=== PATIENT | female | born 1995 | race Caucasian/White ===

== ENCOUNTER → 2017-07-10 | Outpatient (CLI) | payer OTHER ==
[2017-07-10 18:13] LABS: BASO % 0.3 % (0.0-1.0); EOS # 0.1 10^3/uL (0.0-0.50); EOS % 0.7 % (0.0-3.0); IMMATURE GRANULOCYTE % 0.3 % (0-0); LYMPH # 1.8 10^3/uL (1.5-6.5); LYMPH % 15.4 % (24.0-44.0); MEAN CORPUSCULAR HEMOGLOBIN 30.8 pg (27.0-33.0); MEAN CORPUSCULAR HGB CONC 33.9 g/dl (32.0-36.5); MEAN CORPUSCULAR VOLUME 91.1 fl (80.0-96.0); MONO # 0.9 10^3/uL (0.0-0.8); MONO % 7.8 % (0.0-5.0); NEUTROPHILS # 8.9 10^3/uL (1.8-7.7); NEUTROPHILS % 75.5 % (36.0-66.0); PLATELET COUNT, AUTOMATED 304 10^3/uL (150-450); RED CELL DISTRIBUTION WIDTH 11.9 % (11.5-14.5); WHITE BLOOD COUNT 11.8 10^3/uL (4.0-10.0)
[2017-07-12 12:09] LABS: HBsAg Prenatal NEGATIVE (NEGATIVE)
== END ==
LOC: M SMT 13:56
PROVIDERS: ATTEND Advanced Practice Midwife
DX: O30.041 Twin pregnancy, dichorionic/diamniotic, first trimester (principal); Z3A.09 9 weeks gestation of pregnancy

== ENCOUNTER → 2017-09-11 | Outpatient (CLI) | payer OTHER | LOC: M RAD 13:06 | DX: O30.042 Twin pregnancy, dichorionic/diamniotic, second trimester (principal); Z3A.18 18 weeks gestation of pregnancy | CPT/HCPCS: 76811 ==

== ENCOUNTER → 2017-09-27 | Outpatient (CLI) | payer OTHER | LOC: M RAD 07:20 | DX: O43.022 Fetus-to-fetus placental transfusion syndrome, second trimester (principal) ==

== ENCOUNTER → 2017-10-04 | Outpatient (CLI) | payer OTHER | LOC: M RAD 13:50 | DX: O43.022 Fetus-to-fetus placental transfusion syndrome, second trimester (principal); Z3A.21 21 weeks gestation of pregnancy; O30.032 Twin pregnancy, monochorionic/diamniotic, second trimester | CPT/HCPCS: 76816 ==

== ENCOUNTER → 2017-10-11 | Outpatient (CLI) | payer OTHER | LOC: M RAD 14:05 | DX: O43.022 Fetus-to-fetus placental transfusion syndrome, second trimester (principal); Z3A.22 22 weeks gestation of pregnancy | CPT/HCPCS: 76816 ==

== ENCOUNTER 2017-10-18 16:13 | Outpatient (CLI) | payer OTHER | END 2017-10-18 19:00 | disposition home or self-care (01) | LOC: M LDO 16:13 | DX: O30.032 Twin pregnancy, monochorionic/diamniotic, second trimester (principal); O43.022 Fetus-to-fetus placental transfusion syndrome, second trimester; Z3A.23 23 weeks gestation of pregnancy | CPT/HCPCS: 76815 ==

== ENCOUNTER → 2017-10-18 | Outpatient (CLI) | payer OTHER | LOC: M RAD 14:00 | DX: O43.022 Fetus-to-fetus placental transfusion syndrome, second trimester (principal); O30.032 Twin pregnancy, monochorionic/diamniotic, second trimester; Z3A.23 23 weeks gestation of pregnancy; O40.2XX1 Polyhydramnios, second trimester, fetus 1; O41.02X2 Oligohydramnios, second trimester, fetus 2 | CPT/HCPCS: 76816 ==

== ENCOUNTER → 2017-11-03 | Outpatient (CLI) | payer OTHER | LOC: M RAD 12:15 | DX: O30.032 Twin pregnancy, monochorionic/diamniotic, second trimester (principal) ==

== ENCOUNTER → 2017-11-10 | Outpatient (CLI) | payer OTHER ==
[2017-11-10 17:39] LABS: HEMATOCRIT 31.1 % (36.0-47.0); HEMOGLOBIN 10.1 g/dl (12.0-15.5); MEAN CORPUSCULAR HEMOGLOBIN 29.5 pg (27.0-33.0); MEAN CORPUSCULAR HGB CONC 32.5 g/dl (32.0-36.5); MEAN CORPUSCULAR VOLUME 90.9 fl (80.0-96.0); PLATELET COUNT, AUTOMATED 245 10^3/uL (150-450); RED BLOOD COUNT 3.42 10^6/uL (4.00-5.40); RED CELL DISTRIBUTION WIDTH 12.8 % (11.5-14.5); WHITE BLOOD COUNT 10.2 10^3/uL (4.0-10.0)
[2017-11-10 18:59] LABS: GLUCOSE CHALLENGE TEST 1 HOUR 88 MG/DL (LESS THAN 140)
== END ==
LOC: M SMT 14:28
DX: O30.042 Twin pregnancy, dichorionic/diamniotic, second trimester (principal)

== ENCOUNTER → 2017-11-13 | Outpatient (CLI) | payer OTHER | LOC: M RAD 17:01 | DX: O30.032 Twin pregnancy, monochorionic/diamniotic, second trimester (principal); Z3A.27 27 weeks gestation of pregnancy ==

== ENCOUNTER → 2017-11-21 | Outpatient (CLI) | payer OTHER | LOC: M RAD 07:49 | DX: O30.032 Twin pregnancy, monochorionic/diamniotic, second trimester (principal); Z3A.28 28 weeks gestation of pregnancy | CPT/HCPCS: 76816 ==

== ENCOUNTER → 2017-12-13 | Outpatient (CLI) | payer OTHER | LOC: M RAD 11:03 | DX: O30.033 Twin pregnancy, monochorionic/diamniotic, third trimester (principal); Z3A.31 31 weeks gestation of pregnancy; O32.2XX2 Maternal care for transverse and oblique lie, fetus 2 | CPT/HCPCS: 76819 ==

== ENCOUNTER → 2017-12-26 | Outpatient (CLI) | payer OTHER | LOC: M RAD 17:47 | DX: O30.032 Twin pregnancy, monochorionic/diamniotic, second trimester (principal); Z3A.33 33 weeks gestation of pregnancy; O32.2XX2 Maternal care for transverse and oblique lie, fetus 2 | CPT/HCPCS: 76819 ==

== ENCOUNTER 2017-12-28 10:07 | Outpatient (CLI) | payer OTHER ==
[2017-12-28] MEDS: BETAMETHASONE SOLUSPAN 6MG/ML INJ 5ML (J0702) IM (11:05)
== END 2017-12-28 12:00 | disposition home or self-care (01) ==
LOC: M LDO 10:07
DX: O30.033 Twin pregnancy, monochorionic/diamniotic, third trimester (principal); Z3A.33 33 weeks gestation of pregnancy
CPT/HCPCS: J0702

== ENCOUNTER 2017-12-29 10:04 | Outpatient (CLI) | payer OTHER ==
[2017-12-29] MEDS: BETAMETHASONE SOLUSPAN 6MG/ML INJ 5ML (J0702) IM (11:22)
== END 2017-12-29 12:50 | disposition home or self-care (01) ==
LOC: M LDO 10:04
DX: O30.033 Twin pregnancy, monochorionic/diamniotic, third trimester (principal); Z3A.33 33 weeks gestation of pregnancy; O26.893 Other specified pregnancy related conditions, third trimester
CPT/HCPCS: J0702

== ENCOUNTER → 2018-01-03 | Outpatient (CLI) | payer OTHER | LOC: M RAD 09:42 | DX: O30.043 Twin pregnancy, dichorionic/diamniotic, third trimester (principal); Z3A.34 34 weeks gestation of pregnancy | CPT/HCPCS: 76819 ==

== ENCOUNTER → 2018-01-03 | Outpatient (REF) | payer OTHER | LOC: M LAB REF 17:22 | DX: O30.033 Twin pregnancy, monochorionic/diamniotic, third trimester (principal) | CPT/HCPCS: 87081 ==

== ENCOUNTER 2018-01-04 06:54 | Inpatient (IN) | payer OTHER ==
[2018-01-04 08:00] LABS: HEMATOCRIT 41.8 % (36.0-47.0); HEMOGLOBIN 13.8 g/dl (12.0-15.5); MEAN CORPUSCULAR HEMOGLOBIN 30.3 pg (27.0-33.0); MEAN CORPUSCULAR VOLUME 91.9 fl (80.0-96.0); PLATELET COUNT, AUTOMATED 160 10^3/uL (150-450); RED BLOOD COUNT 4.55 10^6/uL (4.00-5.40); RED CELL DISTRIBUTION WIDTH 17.8 % (11.5-14.5); WHITE BLOOD COUNT 8.8 10^3/uL (4.0-10.0)
[2018-01-04] MEDS: LACTATED RINGER'S 1000 ML IV (08:26)
[2018-01-04] MEDS: LR 1,000 ML IV ×4 (09:22→23:52)
[2018-01-04] MEDS ORDERED: MORPHINE PRES-FREE INJ 10 MG/10 ML VIAL (J2274) As Ordered (09:36)
[2018-01-04] MEDS ORDERED: OXYTOCIN INJ 10 UNITS/ML VIAL (J2590) As Ordered ×2 (09:37)
[2018-01-04] MEDS: BICITRA 30ML SOLN UDC PO (09:51)
[2018-01-04] MEDS ORDERED: ONDANSETRON 4MG/2ML VIAL (J2405) As Ordered (10:02)
[2018-01-04] MEDS ORDERED: ePHEDrine SULFATE 25 MG/5 ML(5MG/ML) SYRINGE As Ordered (10:05)
[2018-01-04] MEDS ORDERED: METOCLOPRAMIDE INJ 10MG/2ML VIAL (J2765) IV (10:05)
[2018-01-04] MEDS ORDERED: PHENYLephrine HCL 500 MCG/5 ML (100MCG/ML) SYRINGE (J2370) As Ordered (10:05)
[2018-01-04] MEDS ORDERED: NALOXONE INJ 0.4 MG/1 ML VIAL (J2310) IV ×2 (10:05)
[2018-01-04] MEDS ORDERED: NALBUPHINE HCL 10 MG/ML AMP (J2300) IV (10:05)
[2018-01-04] MEDS ORDERED: ONDANSETRON 4MG/2ML VIAL (J2405) IV ×3 (10:05→11:45)
[2018-01-04] MEDS ORDERED: ATROPINE SULF 0.4 MG/ML 1ML VIAL (J0461) As Ordered (10:15)
[2018-01-04] MEDS ORDERED: KETOROLAC 60 MG/2 ML VIAL (J1885) As Ordered (10:34)
[2018-01-04] MEDS ORDERED: miSOPROStol 200 MCG TAB (S0191) As Ordered (10:46)
[2018-01-04] MEDS: miSOPROStol 200 MCG TAB (S0191) PR (11:30)
[2018-01-04] MEDS ORDERED: RHOGAM 300 MCG (1500 IU) INJ (J2790) IM (11:30)
[2018-01-04] MEDS ORDERED: PERCOCET 5MG/325MG TAB PO (11:45)
[2018-01-04] MEDS ORDERED: fentaNYL 100 MCG/2 ML INJECTION (J3010) IV (11:45)
[2018-01-04] MEDS ORDERED: MEPERIDINE INJ 25 MG/ML VIAL (J2175) As Ordered (11:50)
[2018-01-04] MEDS: MEPERIDINE INJ 25 MG/ML VIAL (J2175) IV (12:15)
[2018-01-04] MEDS: KETOROLAC 30 MG/ML VIAL (J1885) IV ×2 (17:16→22:25)
[2018-01-05] MEDS: KETOROLAC 30 MG/ML VIAL (J1885) IV (05:13)
[2018-01-05 07:35] LABS: HEMATOCRIT 42.4 % (36.0-47.0); HEMOGLOBIN 14.2 g/dl (12.0-15.5); MEAN CORPUSCULAR HEMOGLOBIN 30.5 pg (27.0-33.0); MEAN CORPUSCULAR HGB CONC 33.5 g/dl (32.0-36.5); PLATELET COUNT, AUTOMATED 179 10^3/uL (150-450); RED BLOOD COUNT 4.66 10^6/uL (4.00-5.40); RED CELL DISTRIBUTION WIDTH 17.4 % (11.5-14.5); WHITE BLOOD COUNT 14.9 10^3/uL (4.0-10.0)
[2018-01-05] MEDS: PRENATAL VITAMINS CHEWABLE TABLET PO (07:56)
[2018-01-05] MEDS: PERCOCET 5MG/325MG TAB PO ×5 (07:57→20:31)
[2018-01-05] MEDS: LR 1,000 ML IV ×2 (11:30→19:30)
[2018-01-05] MEDS: IBUPROFEN 800 MG TAB PO ×2 (12:06→21:26)
[2018-01-05] MEDS: DOCUSATE SODIUM 100 MG CAP PO (20:01)
[2018-01-06] MEDS: PERCOCET 5MG/325MG TAB PO ×6 (00:08→21:27)
[2018-01-06] MEDS: IBUPROFEN 800 MG TAB PO ×3 (04:10→21:27)
[2018-01-06] MEDS: PRENATAL VITAMINS CHEWABLE TABLET PO (08:27)
[2018-01-06] MEDS: ADACEL/BOOSTRIX VACCINE (DIPHTH/PERTUSS/ACELL/TETANUS)0.5ML SYR (90715) IM (12:28)
[2018-01-06] MEDS: DOCUSATE SODIUM 100 MG CAP PO (21:27)
[2018-01-07] MEDS: PERCOCET 5MG/325MG TAB PO ×4 (01:39→13:57)
[2018-01-07] MEDS: IBUPROFEN 800 MG TAB PO ×2 (05:55→13:47)
[2018-01-07] MEDS: PRENATAL VITAMINS CHEWABLE TABLET PO (09:39)
[2018-01-07] MEDS: MEASLES,MUMPS,RUBELLA VACCINE INJ (MMR-II) (90707) SC (13:48)
== END 2018-01-07 15:15 | disposition home or self-care (01) | DRG 765 ==
LOC: M LDI 06:54 → M OBS 13:53
PROVIDERS: Specialist
PROC: 10D00Z1 Extraction of Products of Conception, Low, Open Approach (ICD-10-PCS; principal; 2018-01-04 08:33)
DX: O30.033 Twin pregnancy, monochorionic/diamniotic, third trimester (principal); O60.14X0 Preterm labor third trimester with preterm delivery third trimester, not applicable or unspecified; Z37.2 Twins, both liveborn; Z3A.34 34 weeks gestation of pregnancy; O43.023 Fetus-to-fetus placental transfusion syndrome, third trimester

== ENCOUNTER → 2019-02-08 | Outpatient (CLI) | payer OTHER ==
[~2019-02-08] MED LIST: IBUP-1114 PO; IRON65TA PO; MAGN500C PO; OXYC1TAB23 PO; PRENTAB9 PO; VITA-110 PO
[2019-02-08 13:21] LABS: BASO % 0.4 % (0.0-1.0); EOS # 0.4 10^3/uL (0.0-0.50); HEMATOCRIT 40.7 % (36.0-47.0); HEMOGLOBIN 13.3 g/dl (12.0-15.5); LYMPH # 1.5 10^3/uL (1.5-6.5); LYMPH % 21.1 % (24.0-44.0); MEAN CORPUSCULAR HEMOGLOBIN 29.8 pg (27.0-33.0); MEAN CORPUSCULAR HGB CONC 32.7 g/dl (32.0-36.5); MEAN CORPUSCULAR VOLUME 91.3 fl (80.0-96.0); MONO # 0.6 10^3/uL (0.0-0.8); MONO % 7.6 % (0.0-5.0); NEUTROPHILS # 4.7 10^3/uL (1.8-7.7); NEUTROPHILS % 65.6 % (36.0-66.0); PLATELET COUNT, AUTOMATED 298 10^3/uL (150-450); RED BLOOD COUNT 4.46 10^6/uL (4.00-5.40); WHITE BLOOD COUNT 7.2 10^3/uL (4.0-10.0)
[2019-02-08 14:33] LABS: RUBELLA IgG QUALITATIVE IMMUNE (IMMUNE)
[2019-02-08 15:09] LABS: GC DNA AMPLIFICATION NEGATIVE (NEGATIVE)
[2019-02-11 12:33] LABS: CHLAMYDIA DNA AMPLIFICATION NEGATIVE (NEGATIVE)
[2019-02-11 12:34] LABS: HEPATITIS C VIRUS ABY INDEX 0.1 INDEX (<0.8); HIV 1&2 SCREEN CENTAUR NEGATIVE (NEGATIVE)
== END ==
LOC: M SMT 09:15
PROVIDERS: ATTEND Specialist
DX: Z34.81 Encounter for supervision of other normal pregnancy, first trimester (principal); Z3A.08 8 weeks gestation of pregnancy

== ENCOUNTER → 2019-04-04 | Outpatient (CLI) | payer OTHER | LOC: M WUC 15:49 | PROVIDERS: ATTEND Specialist | DX: Z34.82 Encounter for supervision of other normal pregnancy, second trimester (principal); Z3A.00 Weeks of gestation of pregnancy not specified ==

== ENCOUNTER → 2019-04-24 | Outpatient (CLI) | payer OTHER ==
--- NOTE | 2019-04-24 17:15 | REP ---
Obstetric ultrasound for anatomy: There is a single intrauterine gestation in a vertex presentation. There is movement and cardiac activity. The heart rate is 147 beats per minute. The placenta is anterior. There is no previa or abruptio. The placenta is grade zero. The amniotic fluid volume subjectively is normal. The cervix measures 5.2 cm length. Gestational age by today's ultrasound is 20 weeks 4 days/SRAVANTHI 09/07/2019. Gestational age by LMP is 19-week 6 days/SRAVANTHI 09/12/2019. weight is 387 grams/0 pounds, 13 ounces. This is the 86 percentile for 19 weeks 6 days. The following anatomic structures are identified and are unremarkable: Cranium, choroid plexus, cavum septum pellucidum, cerebellum, facial profile, upper lip, lungs, four-chamber heart, cardiac right and left ventricular outflow tracts, diaphragm, stomach, cord insertion, three-vessel cord, kidneys, bladder, spine and upper lower extremities. No anomalies are identified. Electronically Signed by Rudolph Walsh MD 04/24/2019 05:05 P
== END ==
LOC: M RAD 15:12
PROVIDERS: ATTEND Specialist
DX: Z34.82 Encounter for supervision of other normal pregnancy, second trimester (principal); Z36.89 Encounter for other specified antenatal screening; Z3A.20 20 weeks gestation of pregnancy

== ENCOUNTER → 2019-06-19 | Outpatient (CLI) | payer OTHER ==
[2019-06-19 16:18] LABS: BASO % 0.1 % (0.0-1.0); EOS # 0.1 10^3/uL (0.0-0.5); EOS % 0.9 % (0.0-3.0); HEMATOCRIT 34.9 % (36.0-47.0); HEMOGLOBIN 11.2 g/dl (12.0-15.5); LYMPH # 1.8 10^3/uL (1.5-5.0); LYMPH % 15.9 % (24.0-44.0); MEAN CORPUSCULAR HEMOGLOBIN 30.3 pg (27.0-33.0); MEAN CORPUSCULAR HGB CONC 32.1 g/dl (32.0-36.5); MEAN CORPUSCULAR VOLUME 94.3 fl (80.0-96.0); MONO % 9.1 % (0.0-5.0); NEUTROPHILS # 8.2 10^3/uL (1.5-8.5); NEUTROPHILS % 73.5 % (36.0-66.0); PLATELET COUNT, AUTOMATED 242 10^3/uL (150-450); WHITE BLOOD COUNT 11.2 10^3/uL (4.0-10.0)
== END ==
LOC: M WUC 14:29
PROVIDERS: ATTEND Specialist
DX: Z34.82 Encounter for supervision of other normal pregnancy, second trimester (principal); Z36.89 Encounter for other specified antenatal screening

== ENCOUNTER → 2019-08-16 | Outpatient (REF) | payer OTHER | LOC: M SFHCWAGY 17:11 | PROVIDERS: ATTEND Specialist | DX: Z36.89 Encounter for other specified antenatal screening (principal) ==

== ENCOUNTER 2019-09-17 06:26 | Inpatient (IN) | payer OTHER ==
[2019-09-17] VITALS (30 sets, daily range): BP systolic 101–133; BP diastolic 53–84
[~2019-09-17] VITALS: Ht 157.5 cm; Wt 85.5 kg
[2019-09-17] MEDS ORDERED: PENICILLIN G POTASSIUM IV 5 MU in D5W MINI-BAG PLUS 100 ML IV STA (07:13)
--- NOTE | 2019-09-17 07:38 | HPE ---
DATE OF ADMISSION: 09/17/2019 24-year-old G2, P1 female at 40 and 5/7 week gestation by last menstrual period (LMP) consistent with an 8-week ultrasound with estimated date of confinement (EDC) 09/12/2019 presents with regular contractions every 2-3 minutes for last 2 hours. Contractions increased in intensity. She had a small amount of vaginal bleeding. She had a history of a prior section and desires trial of labor after (TOLAC) option. COURSE: Patient initiated care at 8 weeks gestation. She had normal course. She was counseled extensively regarding TOLAC and inherent risks. OBSTETRICAL HISTORY: December 2017 - primary section 34 weeks 5 days for twins. complicated by twin/twin transfusion, status post laser coagulation of anastomoses. PAST MEDICAL HISTORY: Noncontributory. PAST SURGICAL HISTORY: 1. section. 2. [place] teeth removal. 3. Transabdominal surgery for laser coagulation of abnormal vessels during . ALLERGIES: CLOBETASOL SOCIAL HISTORY: Patient is . She lives at [facility]. is in the . She denies cigarettes, alcohol or drug use. FAMILY HISTORY: Noncontributory. Blood pressure 133/80, pulse 84. She appears uncomfortable. Head and neck exam is normal. Lungs clear Heart regular rate and rhythm. Abdomen nontender. heart tones category 1, contractions every 2 minutes, strong. Sterile vaginal exam: 3 cm, 100%, -2, posterior soft vertex. Extremities nontender. LABS: Blood type is O negative. Rubella immune. RPR nonreactive. Hepatitis B and C negative. HIV negative. GBS positive. ASSESSMENT: 24-year-old G2, P1 at 40 5/7 weeks gestation, history of prior section times one presents in labor. PLAN: Patient will be admitted on 09/17/2019. Risks of TOLAC have been discussed. Plan penicillin for group B strep (GBS) prophylaxis.
[2019-09-17 08:11] LABS: HEMATOCRIT 39.1 % (36.0-47.0); HEMOGLOBIN 12.5 g/dl (12.0-15.5); MEAN CORPUSCULAR HEMOGLOBIN 27.4 pg (27.0-33.0); MEAN CORPUSCULAR VOLUME 85.7 fl (80.0-96.0); PLATELET COUNT, AUTOMATED 210 10^3/uL (150-450); RED BLOOD COUNT 4.56 10^6/uL (4.00-5.40); WHITE BLOOD COUNT 10.7 10^3/uL (4.0-10.0)
[2019-09-17] MEDS: PENICILLIN G POTASSIUM IV 2.5 MU in IV 1 EA IV SCH ×3 (12:03→20:09)
[2019-09-17] MEDS ORDERED: LR 1,000 ML IV ONE (18:00)
[2019-09-17] MEDS ORDERED: FENTANYL 2MCG/ML ROPIVACAINE 0.2% IN 0.9% NACL 100ML IVBAG As Ordered ONE (18:17)
[2019-09-17] MEDS ORDERED: LR 1,000 ML IV SCH (19:00)
[2019-09-17] MEDS ORDERED: OXYTOCIN DRIP 30 UNITS in IV 1 EA IV SCH (21:00)
[2019-09-17] MEDS ORDERED: FENTANYL/ROPIVACAINE/NACL BAG 100 ML EPIDURAL SCH (21:45)
[2019-09-17] MEDS ORDERED: NALOXONE INJ 0.4 MG/1 ML VIAL (J2310) IV PRN (21:45)
[2019-09-17] MEDS ORDERED: EPIDURAL/PCA KEYS XX PRN (21:45)
[2019-09-17] MEDS ORDERED: ONDANSETRON 4MG/2ML VIAL (J2405) IV PRN (21:45)
[2019-09-17] MEDS ORDERED: ePHEDrine SULFATE 25 MG/5 ML(5MG/ML) SYRINGE IV PRN (21:45)
[2019-09-17] MEDS ORDERED: EPIDURAL COMMENT XX SCH (21:45)
[2019-09-17] MEDS ORDERED: diphenhydrAMINE INJ 50MG/ML VIAL (J1200) IV PRN (21:45)
[2019-09-17] MEDS ORDERED: LACTATED RINGER'S 1000 ML IV PRN (21:45)
[2019-09-17] MEDS ORDERED: REFRIGERATOR IV KEYS XX PRN (21:45)
[2019-09-17] MEDS ORDERED: BICITRA 30ML SOLN UDC As Ordered ONE (23:17)
[2019-09-17] MEDS ORDERED: ceFAZolin 2 GM/D5W 50 ML IV BAG (J0690 PER 500MG) As Ordered ONE (23:17)
[2019-09-17] MEDS ORDERED: BICITRA 30ML SOLN UDC PO ONE (23:30)
[2019-09-17] MEDS ORDERED: ceFAZolin SOD 2 GM in IV 1 EA IV ONE (23:30)
[2019-09-17] MEDS ORDERED: OXYTOCIN INJ 10 UNITS/ML VIAL (J2590) As Ordered ONE (23:42)
[2019-09-17] MEDS ORDERED: ONDANSETRON 4MG/2ML VIAL (J2405) As Ordered ONE (23:55)
[2019-09-17] MEDS ORDERED: PHENYLephrine HCL 500 MCG/5 ML (100MCG/ML) SYRINGE (J2370) As Ordered ONE (23:55)
[2019-09-17] MEDS ORDERED: dexameTHASONE 4 MG/ML 1ML VIAL (J1100) As Ordered ONE (23:55)
[2019-09-17] MEDS ORDERED: LIDOCAINE 2% W/EPIN INJ 20ML **PRES FREE As Ordered ONE (23:56)
[2019-09-18] VITALS (9 sets, daily range): BP systolic 108–131; BP diastolic 55–79
[2019-09-18] MEDS ORDERED: METOCLOPRAMIDE INJ 10MG/2ML VIAL (J2765) As Ordered ONE (00:04)
[2019-09-18] MEDS ORDERED: MORPHINE PRES-FREE INJ 10 MG/10 ML VIAL (J2274) As Ordered ONE (00:10)
[2019-09-18] MEDS ORDERED: KETOROLAC 60 MG/2 ML VIAL (J1885) As Ordered ONE (00:11)
[2019-09-18] MEDS ORDERED: NALBUPHINE HCL 10 MG/ML AMP (J2300) IV PRN (00:17)
[2019-09-18] MEDS ORDERED: ONDANSETRON 4MG/2ML VIAL (J2405) IV PRN ×3 (00:17→00:45)
[2019-09-18] MEDS ORDERED: METOCLOPRAMIDE INJ 10MG/2ML VIAL (J2765) IV PRN ×2 (00:17→00:45)
[2019-09-18] MEDS ORDERED: diphenhydrAMINE INJ 50MG/ML VIAL (J1200) IV PRN (00:17)
[2019-09-18] MEDS ORDERED: NALOXONE INJ 0.4 MG/1 ML VIAL (J2310) IV PRN ×2 (00:17)
[2019-09-18] MEDS ORDERED: OXYTOCIN DRIP 30 UNITS in IV 1 EA IV SCH (00:29)
[2019-09-18] MEDS ORDERED: PERCOCET 5MG/325MG TAB PO PRN ×2 (00:30→00:45)
[2019-09-18] MEDS ORDERED: MEASLES,MUMPS,RUBELLA VACCINE INJ (MMR-II) (90707) SC SCH (00:30)
[2019-09-18] MEDS ORDERED: RHOGAM 300 MCG (1500 IU) INJ (J2790) IM SCH (00:30)
[2019-09-18] MEDS ORDERED: LR 1,000 ML IV SCH (00:45)
[2019-09-18] MEDS ORDERED: fentaNYL 100 MCG/2 ML INJECTION (J3010) IV PRN (00:45)
[2019-09-18] MEDS ORDERED: OXYTOCIN 30 UNITS IN 0.9% NaCl 500ML IV BAG (J2590) As Ordered ONE (01:02)
[2019-09-18] MEDS: LR 1,000 ML IV SCH ×3 (01:04→16:29)
[2019-09-18] MEDS ORDERED: PERCOCET 5MG/325MG TAB As Ordered ONE (01:17)
[2019-09-18] MEDS: KETOROLAC 30 MG/ML VIAL (J1885) IV SCH ×3 (05:44→17:57)
[2019-09-18] MEDS: PRENATAL VITAMINS CHEWABLE TABLET PO SCH (09:36)
--- NOTE | 2019-09-18 12:05 | RO ---
DATE OF PROCEDURE: 09/17/2019 PREPROCEDURE DIAGNOSES: 40 and 6/7 weeks gestation, prior section, arrest of dilation. POSTPROCEDURE DIAGNOSES: 40 and 6/7 weeks gestation, prior section, arrest of dilation. PROCEDURE: Repeat low transverse section. SURGEON: Ferdinand Gonzales MD SECURITY INSPECTOR: Ashu Blackmon DO ANESTHESIA: Epidural. ESTIMATED BLOOD LOSS: 500 mL. URINE OUTPUT: 100 mL. FINDINGS: 8 pound 14 ounce male infant. scores 8 and 9. Moderate meconium present. Baby in the occipitotransverse position, asynclitic, normal uterine, fallopian tubes and ovaries. OPERATIVE SUMMARY: The patient was taken to the operative room where epidural anesthesia was adequate. Santiago catheter was already in place. A Pfannenstiel skin incision was made with a scalpel and carried through to the fascia. The fascia was nicked and extended. The fascia was dissected off the rectus muscles. The peritoneal cavity was entered. A bladder flap was created. Mobius retractor was placed. Curvilinear incision was made in the lower uterine segment and some meconium stained fluid was noted. This was extended manually. THe was delivered from the vertex position without difficulty. The cord was doubly clamped and cut. The infant was handed off to the awaiting nurses. The placenta was expressed. Uterus was closed with 0 Vicryl in a running lock fashion. A second imbricating layer of 0 Vicryl was placed. The Mobius retractor was removed. Peritoneum was closed with 2-0 Vicryl in a running fashion. The fascia was closed with 0 Vicryl. The deep layer was irrigated and closed with 2-0 chromic. The skin was closed with 4-0 Monocryl subcuticular sutures. Sponge, instrument and needle counts were correct. Ashu Blackmon DO assisted throughout the procedure. He helped to create each layer of the incision. He helped delivery the fetus and close all subsequent layers. His help was indispensable to the successful completion of the procedure.
[2019-09-18] MEDS ORDERED: OXYC1TAB23 PO (15:13)
[2019-09-19] MEDS: IBUPROFEN 800 MG TAB PO SCH ×3 (01:53→18:10)
[2019-09-19] MEDS: PERCOCET 5MG/325MG TAB PO PRN ×3 (04:00→18:11)
[2019-09-19 06:00] VITALS: BP 135/66
[2019-09-19 07:28] LABS: HEMATOCRIT 32.1 % (36.0-47.0); MEAN CORPUSCULAR HEMOGLOBIN 27.8 pg (27.0-33.0); MEAN CORPUSCULAR HGB CONC 30.8 g/dl (32.0-36.5); MEAN CORPUSCULAR VOLUME 90.2 fl (80.0-96.0); PLATELET COUNT, AUTOMATED 181 10^3/uL (150-450); RED BLOOD COUNT 3.56 10^6/uL (4.00-5.40)
[2019-09-19 07:41] LABS: HEMOGLOBIN 9.9 g/dl (12.0-15.5)
[2019-09-19] MEDS: DOCUSATE SODIUM 100 MG CAP PO PRN ×2 (09:29→20:20)
[2019-09-19] MEDS: PRENATAL VITAMINS CHEWABLE TABLET PO SCH (09:29)
[2019-09-19 18:03] VITALS: BP 109/62
[2019-09-19 22:00] VITALS: BP 109/62
[2019-09-20] MEDS: PERCOCET 5MG/325MG TAB PO PRN ×2 (00:41→07:54)
[2019-09-20 02:00] VITALS: BP 115/65
[2019-09-20] MEDS: IBUPROFEN 800 MG TAB PO SCH ×2 (02:20→09:28)
[2019-09-20 06:00] VITALS: BP 120/70
[2019-09-20] MEDS: PRENATAL VITAMINS CHEWABLE TABLET PO SCH ×2 (07:08→07:53)
[2019-09-20] MEDS ORDERED: IBUP80TA PO (08:07)
--- NOTE | 2019-09-20 08:11 | DS.PDOC ---
Discharge Summary General Date of Admission Sep 17, 2019 at 07:05 Date of Discharge 09/20/19 Attending Physician: ASTRID BEGUM MD Discharge Summary PROCEDURES PERFORMED DURING STAY: section. ADMITTING DIAGNOSES: 1. Trial labor after section. DISCHARGE DIAGNOSES: 1., Arrest of dilation. 2. Repeat section. COMPLICATIONS/CHIEF COMPLAINT: LABOR. HISTORY OF PRESENT ILLNESS:. This patient is a 24-year-old 2, para 1 at 40 weeks 5 days estimated gestational age who presented in active labor. She had been thoroughly counseled regards to her mobile delivery secondary to a history of section. She expressed desire for trial labor after section HOSPITAL COURSE: Patient is labor progress, had arrest of dilation and underwent uncomplicated section productive of a liveborn male , Apgars 8 and 9. Weight was 8 lbs. 14 oz. Estimated blood loss is 500 amounts. Patient did well. By postoperative day #3, had met all discharge criteria and was discharged home in stable condition. DISCHARGE MEDICATIONS: Please see below. ALLERGIES: Please see below. PHYSICAL EXAMINATION ON DISCHARGE: VITAL SIGNS: Please see below. GENERAL:. Well-appearing Incision was dressed. Abdomen was soft, appropriately tender LABORATORY DATA: Please see below. ACTIVITY: As tolerated. DIET: Regular DISCHARGE PLAN:. The remain on pelvic rest for 6 weeks. 2. Reports severe pain, heavy vaginal bleeding, fever, incisional issues. Follow-up 6 weeks DISPOSITION: home DISCHARGE CONDITION: Stable. Vital Signs/I&Os Vital Signs Date Time Temp Pulse Resp B/P (MAP) Pulse Ox O2 Delivery O2 Flow Rate FiO2 09/20/19 07:54 18 09/20/19 06:00 97.9 56 120/70 (87) 99 Room Air Discharge Medications Scheduled Ibuprofen (Ibuprofen) 800 Mg Tablet, 800 MG PO Q8H No.137/Iron/Folic Acd ( Vitamin Tablet) 1 Tab Tab, 1 TAB PO DAILY, (Reported) Scheduled PRN Oxycodone HCl/Acetaminophen (Oxycodone-Acetaminophen 5-325) 1 Each Tablet, 1 TAB PO TIDP PRN for pain Allergies Coded Allergies: clobetasol (Verified Allergy, Severe, THROAT SWELLING, 09/17/19) KASANDRA EDUARDO MD. Sep 20, 2019 08:11
== END 2019-09-20 13:05 | disposition home or self-care (01) | DRG 773 ==
LOC: M LDO 06:26 → M LDI 07:05 → M OBS 09-18 02:26
PROVIDERS: ADMIT Specialist; ATTEND Specialist
PROC: 10D00Z1 Extraction of Products of Conception, Low, Open Approach (ICD-10-PCS; principal; 2019-09-17 23:30)
DX: O48.0 Post-term pregnancy (principal); Z3A.40 40 weeks gestation of pregnancy; Z37.0 Single live birth; O99.824 Streptococcus B carrier state complicating childbirth; O66.41 Failed attempted vaginal birth after previous cesarean delivery; O34.211 Maternal care for low transverse scar from previous cesarean delivery; O62.0 Primary inadequate contractions; O77.0 Labor and delivery complicated by meconium in amniotic fluid

== ENCOUNTER 2020-07-27 11:29 | Emergency (ER) | payer OTHER ==
[~2020-07-27] VITALS: Ht 157.5 cm; Wt 60.2 kg
[~2020-07-27 11:29] MED LIST changes: +IBUP80TA PO
[2020-07-27 12:44] LABS: BASO % 0.6 % (0.0-1.0); EOS # 0.1 10^3/uL (0.0-0.5); EOS % 1.2 % (0.0-3.0); HEMATOCRIT 43.1 % (36.0-47.0); HEMOGLOBIN 13.7 g/dl (12.0-15.5); LYMPH # 1.9 10^3/uL (1.5-5.0); MEAN CORPUSCULAR HEMOGLOBIN 30.9 pg (27.0-33.0); MEAN CORPUSCULAR HGB CONC 31.8 g/dl (32.0-36.5); MEAN CORPUSCULAR VOLUME 97.1 fl (80.0-96.0); MONO # 0.5 10^3/uL (0.0-0.8); MONO % 7.8 % (0.0-5.0); NEUTROPHILS # 4.4 10^3/uL (1.5-8.5); NEUTROPHILS % 63.3 % (36.0-66.0); PLATELET COUNT, AUTOMATED 282 10^3/uL (150-450); RED BLOOD COUNT 4.44 10^6/uL (4.00-5.40); WHITE BLOOD COUNT 6.9 10^3/uL (4.0-10.0)
--- NOTE | 2020-07-27 13:08 | REP ---
INDICATION: vaginal bleeding, first trimester. COMPARISON: None. TECHNIQUE: Transabdominal scanning. FINDINGS: There is a tiny sac-like structure in the uterine endometrium. No discernible yolk sac or embryonic pole is seen. Mean sac size diameter is 3.4 mm. This would correspond with a gestational age estimate of 4 weeks 6 days. No extra uterine abnormality is observed. Normal ovaries are seen. Right ovarian dimensions are 3.7 x 1.6 x 1.8 cm. Left ovary measures 4.0 x 1.6 x 2.8 cm. Doppler flow is present in both ovaries, resistive indices are 0.68 and 0.60 on the right and left respectively. Uterine dimensions are 9.0 x 4.1 x 6.1 cm. IMPRESSION: Tiny intrauterine gestational sac-like structures 3 mm in mean sac size diameter, 4 weeks 6 days size. No embryonic pole or yolk sac visible. Otherwise negative. Findings are nonspecific. viability cannot be confirmed. Clinical and possibly sonographic follow-up suggested. <Electronically signed by Levy Aguilar > 07/27/20 [id number]
[2020-07-27 14:10] VITALS: BP 114/62
== END 2020-07-27 14:16 | disposition home or self-care (01) ==
LOC: M ED 11:29
DX: O20.0 Threatened abortion (principal); Z3A.01 Less than 8 weeks gestation of pregnancy; Z88.8 Allergy status to other drugs, medicaments and biological substances

== ENCOUNTER → 2020-07-29 | Outpatient (CLI) | payer OTHER | LOC: M LAB 11:23 | PROVIDERS: ATTEND Physician Assistant Medical | DX: O20.0 Threatened abortion (principal); Z3A.00 Weeks of gestation of pregnancy not specified ==

== ENCOUNTER → 2021-05-28 | Outpatient (CLI) | payer OTHER ==
[2021-05-28 12:09] LABS: HEMATOCRIT 42.5 % (36.0-47.0); HEMOGLOBIN 13.1 g/dl (12.0-15.5); MEAN CORPUSCULAR HEMOGLOBIN 28.1 pg (27.0-33.0); MEAN CORPUSCULAR HGB CONC 30.8 g/dl (32.0-36.5); MEAN CORPUSCULAR VOLUME 91.2 fl (80.0-96.0); PLATELET COUNT, AUTOMATED 348 10^3/uL (150-450); RED BLOOD COUNT 4.66 10^6/uL (4.00-5.40)
[2021-05-28 13:38] LABS: GC DNA AMPLIFICATION NEGATIVE (NEGATIVE)
== END ==
LOC: M PLALAB 08:50
PROVIDERS: ATTEND Obstetrics & Gynecology
DX: O20.0 Threatened abortion (principal); Z3A.00 Weeks of gestation of pregnancy not specified

== ENCOUNTER → 2021-05-28 | Outpatient (CLI) | payer OTHER ==
--- NOTE | 2021-05-28 10:32 | REP ---
INDICATION: THREATENED . COMPARISON: None. TECHNIQUE: Real-time sonographic evaluation of pelvis performed utilizing transabdominal and endovaginal technique. FINDINGS: The uterus measures 8.6 x 4.4 x 5.6 cm. The endometrial echo complex has a trilaminar appearance and an AP thickness of 9 mm. There is no intrauterine gestational sac or fluid collection identified. The ovaries are normal in size and echotexture, right ovary measuring 3.8 x 1.7 x 2.5 cm and left ovary 3.8 x 2.0 x 2.0 cm. There is no adnexal mass or free fluid. IMPRESSION: Empty uterus with no gestational sac or fluid collection. No adnexal mass or free fluid. <Electronically signed by Rudolph Mckeon > 05/28/21 [id number]
== END ==
LOC: M WHC 09:13
PROVIDERS: ATTEND Obstetrics & Gynecology
DX: O20.0 Threatened abortion (principal); Z3A.00 Weeks of gestation of pregnancy not specified

== ENCOUNTER → 2021-05-31 | Outpatient (CLI) | payer OTHER | LOC: M PLALAB 08:04 | PROVIDERS: ATTEND Obstetrics & Gynecology | DX: Z32.01 Encounter for pregnancy test, result positive (principal) ==

== ENCOUNTER → 2021-06-02 | Outpatient (CLI) | payer OTHER | LOC: M PLALAB 08:22 | PROVIDERS: ATTEND Obstetrics & Gynecology | DX: Z32.01 Encounter for pregnancy test, result positive (principal) ==

== ENCOUNTER → 2021-06-04 | Outpatient (CLI) | payer OTHER | LOC: M PLALAB 08:14 | PROVIDERS: ATTEND Obstetrics & Gynecology | DX: Z32.01 Encounter for pregnancy test, result positive (principal) ==

== ENCOUNTER → 2021-06-07 | Outpatient (CLI) | payer OTHER | LOC: M PLALAB 07:55 | PROVIDERS: ATTEND Advanced Practice Midwife | DX: O26.851 Spotting complicating pregnancy, first trimester (principal) ==

== ENCOUNTER → 2021-06-09 | Outpatient (CLI) | payer OTHER | LOC: M WHC 13:44 | PROVIDERS: ATTEND Advanced Practice Midwife | DX: O02.81 Inappropriate change in quantitative human chorionic gonadotropin (hCG) in early pregnancy (principal) ==

== ENCOUNTER → 2021-06-09 | Outpatient (CLI) | payer OTHER | LOC: M PLALAB 12:48 | PROVIDERS: ATTEND Advanced Practice Midwife | DX: O02.81 Inappropriate change in quantitative human chorionic gonadotropin (hCG) in early pregnancy (principal) ==

== ENCOUNTER → 2021-06-14 | Outpatient (CLI) | payer OTHER | LOC: M PLALAB 07:56 | PROVIDERS: ATTEND Advanced Practice Midwife | DX: O03.9 Complete or unspecified spontaneous abortion without complication (principal) ==

== ENCOUNTER → 2021-06-21 | Outpatient (CLI) | payer OTHER | LOC: M PLALAB 08:41 | PROVIDERS: ATTEND Advanced Practice Midwife | DX: O03.9 Complete or unspecified spontaneous abortion without complication (principal) ==

== ENCOUNTER → 2021-08-03 | Outpatient (CLI) | payer OTHER ==
[2021-08-03 14:19] LABS: FOLLICLE STIMULATING HORMONE 0.3 mIU/mL; FREE T4 1.07 NG/DL (0.76-1.46); LUTEINIZING HORMONE 0.2 mIU/mL; PROGESTERONE 22.63 NG/ML; THYROID STIMULATING HORMONE 1.04 uIU/ML (0.358-3.740)
== END ==
LOC: M PLALAB 12:07
PROVIDERS: ATTEND Specialist
DX: N92.6 Irregular menstruation, unspecified (principal); N96 Recurrent pregnancy loss
CPT/HCPCS: 36415; 83001; 83002; 84144; 84146; 84439; 84443; G0463

== ENCOUNTER → 2021-09-02 | Outpatient (CLI) | payer OTHER ==
[2021-09-02 13:40] LABS: BASO % 0.4 % (0.0-1.0); EOS # 0.1 10^3/uL (0.0-0.5); EOS % 0.7 % (0.0-3.0); HEMATOCRIT 38.5 % (36.0-47.0); HEMOGLOBIN 12.2 g/dl (12.0-15.5); LYMPH # 1.7 10^3/uL (1.5-5.0); LYMPH % 23.4 % (24.0-44.0); MEAN CORPUSCULAR HEMOGLOBIN 29.7 pg (27.0-33.0); MEAN CORPUSCULAR HGB CONC 31.7 g/dl (32.0-36.5); MEAN CORPUSCULAR VOLUME 93.7 fl (80.0-96.0); MONO # 0.6 10^3/uL (0.0-0.8); MONO % 8.9 % (2.0-8.0); NEUTROPHILS # 4.8 10^3/uL (1.5-8.5); NEUTROPHILS % 66.3 % (36.0-66.0); PLATELET COUNT, AUTOMATED 297 10^3/uL (150-450); RED BLOOD COUNT 4.11 10^6/uL (4.00-5.40); WHITE BLOOD COUNT 7.2 10^3/uL (4.0-10.0)
[2021-09-02 14:53] LABS: HIV 1&2 SCREEN CENTAUR NEGATIVE (NEGATIVE)
[2021-09-02 15:08] LABS: GC DNA AMPLIFICATION NEGATIVE (NEGATIVE)
== END ==
LOC: M PLALAB 09:21
PROVIDERS: ATTEND Specialist
DX: Z34.81 Encounter for supervision of other normal pregnancy, first trimester (principal)

== ENCOUNTER → 2021-10-19 | Outpatient (CLI) | payer OTHER | LOC: M WHC 15:33 | PROVIDERS: ATTEND Specialist | DX: Z34.82 Encounter for supervision of other normal pregnancy, second trimester (principal); Z36.89 Encounter for other specified antenatal screening; Z53.9 Procedure and treatment not carried out, unspecified reason ==

== ENCOUNTER → 2021-11-17 | Outpatient (CLI) | payer OTHER | LOC: M WHC 08:49 | PROVIDERS: ATTEND Specialist | DX: Z34.82 Encounter for supervision of other normal pregnancy, second trimester (principal); Z3A.18 18 weeks gestation of pregnancy ==

== ENCOUNTER → 2022-01-12 | Outpatient (CLI) | payer OTHER ==
[2022-01-12 15:54] LABS: HEMATOCRIT 36.6 % (36.0-47.0); MEAN CORPUSCULAR HEMOGLOBIN 31.5 pg (27.0-33.0); MEAN CORPUSCULAR HGB CONC 32.8 g/dl (32.0-36.5); MEAN CORPUSCULAR VOLUME 96.1 fl (80.0-96.0); PLATELET COUNT, AUTOMATED 228 10^3/uL (150-450); RED BLOOD COUNT 3.81 10^6/uL (4.00-5.40)
== END ==
LOC: M PLALAB 13:31
PROVIDERS: ATTEND Specialist
DX: Z34.82 Encounter for supervision of other normal pregnancy, second trimester (principal)

== ENCOUNTER → 2022-01-25 | Outpatient (REF) | payer OTHER ==
[2022-01-25 19:15] LABS: GC DNA AMPLIFICATION NEGATIVE (NEGATIVE)
== END ==
LOC: M SFHCWAGY 17:00
PROVIDERS: ATTEND Specialist
DX: Z34.82 Encounter for supervision of other normal pregnancy, second trimester (principal)
CPT/HCPCS: 87810; 87850; G0463

== ENCOUNTER → 2022-03-23 | Outpatient (REF) | payer OTHER | LOC: M SFHCWAGY 09:52 | PROVIDERS: ATTEND Specialist | DX: Z34.83 Encounter for supervision of other normal pregnancy, third trimester (principal); Z36.85 Encounter for antenatal screening for Streptococcus B ==

== ENCOUNTER → 2022-04-04 | Outpatient (CLI) | payer OTHER | LOC: M LABSMTC 09:56 | PROVIDERS: ATTEND Anesthesiology | DX: Z01.818 Encounter for other preprocedural examination (principal); Z11.52 Encounter for screening for COVID-19 ==

== ENCOUNTER → 2023-09-07 | Outpatient (CLI) | payer OTHER ==
[2023-09-07 16:07] LABS: HEMATOCRIT 38.4 % (36.0-47.0); HEMOGLOBIN 11.9 g/dl (12.0-15.5); MEAN CORPUSCULAR HEMOGLOBIN 28.3 pg (27.0-33.0); MEAN CORPUSCULAR VOLUME 91.2 fl (80.0-96.0); PLATELET COUNT, AUTOMATED 287 10^3/uL (150-450); RED BLOOD COUNT 4.21 10^6/uL (4.00-5.40); WHITE BLOOD COUNT 6.9 10^3/uL (4.0-10.0)
== END ==
LOC: M PLALAB 12:47
PROVIDERS: ATTEND Obstetrics & Gynecology
DX: N93.9 Abnormal uterine and vaginal bleeding, unspecified (principal)

== ENCOUNTER → 2023-09-07 | Outpatient (CLI) | payer OTHER | LOC: M WHC 11:54 | PROVIDERS: ATTEND Obstetrics & Gynecology | DX: N93.9 Abnormal uterine and vaginal bleeding, unspecified (principal); R93.89 Abnormal findings on diagnostic imaging of other specified body structures ==

== ENCOUNTER → 2023-09-11 | Outpatient (REF) | payer OTHER | LOC: M SFHCWAGY 17:14 | PROVIDERS: ATTEND Obstetrics & Gynecology | DX: R87.610 Atypical squamous cells of undetermined significance on cytologic smear of cervix (ASC-US) (principal) | CPT/HCPCS: 87624; G0123 ==

== ENCOUNTER → 2025-04-18 | Outpatient (REF) | payer OTHER ==
[2025-04-22 14:41] LABS: HPV APTIMA Not Detected (Not Detected)
== END ==
LOC: M SFHCWAGY 13:25
PROVIDERS: ATTEND Obstetrics & Gynecology
DX: Z01.419 Encounter for gynecological examination (general) (routine) without abnormal findings (principal); Z77.9 Other contact with and (suspected) exposures hazardous to health
CPT/HCPCS: 87624; G0123

== ENCOUNTER → 2025-07-08 | Outpatient (CLI) | payer OTHER ==
[2025-07-08 13:49] LABS: PLATELET COUNT, AUTOMATED 279 10^3/uL (150-450)
[2025-07-08 14:14] LABS: HIV 1&2 SCREEN NEGATIVE (NEGATIVE)
[2025-07-08 14:22] LABS: HEPATITIS C VIRUS ABY INDEX < 0.02 INDEX (<0.8)
[2025-07-08 15:25] LABS: Trichomonas vaginalis (AMP) NOT DETECTED (NEGATIVE)
[2025-07-08 15:49] LABS: GC DNA AMPLIFICATION NEGATIVE (NEGATIVE)
== END ==
LOC: M PLALAB 11:07
PROVIDERS: ATTEND Specialist
DX: Z34.81 Encounter for supervision of other normal pregnancy, first trimester (principal)